=== PATIENT | male | born 1955 | race Caucasian/White ===

== ENCOUNTER 2024-02-13 08:18 | Outpatient (CLI) | payer MEDICARE | END 2024-02-13 08:19 | disposition home or self-care (01) | LOC: CSHWCC 08:18 | PROVIDERS: ATTEND Nurse Practitioner Family | DX: N30.40 Irradiation cystitis without hematuria (principal); N39.46 Mixed incontinence | CPT/HCPCS: G0277 ==

== ENCOUNTER 2024-02-14 08:16 | Outpatient (CLI) | payer MEDICARE | END 2024-02-14 08:17 | disposition home or self-care (01) | LOC: CSHWCC 08:16 | PROVIDERS: ATTEND Nurse Practitioner Family | DX: N30.40 Irradiation cystitis without hematuria (principal); N39.46 Mixed incontinence | CPT/HCPCS: G0277 ==

== ENCOUNTER 2024-02-15 08:36 | Outpatient (CLI) | payer MEDICARE | END 2024-02-15 08:37 | disposition home or self-care (01) | LOC: CSHWCC 08:36 | PROVIDERS: ATTEND Nurse Practitioner Family | DX: N30.40 Irradiation cystitis without hematuria (principal); N39.46 Mixed incontinence | CPT/HCPCS: G0277 ==

== ENCOUNTER 2024-02-19 10:43 | Outpatient (CLI) | payer MEDICARE | END 2024-02-19 10:44 | disposition home or self-care (01) | LOC: CSHWCC 10:43 | PROVIDERS: ATTEND Nurse Practitioner Family | DX: N30.40 Irradiation cystitis without hematuria (principal); N39.46 Mixed incontinence | CPT/HCPCS: G0277 ==

== ENCOUNTER 2024-02-20 08:37 | Outpatient (CLI) | payer MEDICARE | END 2024-02-20 08:38 | disposition home or self-care (01) | LOC: CSHWCC 08:37 | PROVIDERS: ATTEND Nurse Practitioner Family | DX: N30.40 Irradiation cystitis without hematuria (principal); N39.46 Mixed incontinence | CPT/HCPCS: G0277 ==

== ENCOUNTER 2024-02-21 09:46 | Outpatient (CLI) | payer MEDICARE | END 2024-02-21 09:47 | disposition home or self-care (01) | LOC: CSHWCC 09:46 | PROVIDERS: ATTEND Nurse Practitioner Family | DX: N30.40 Irradiation cystitis without hematuria (principal); N39.46 Mixed incontinence | CPT/HCPCS: G0277 ==

== ENCOUNTER 2024-02-22 10:58 | Outpatient (CLI) | payer MEDICARE | END 2024-02-22 10:59 | disposition home or self-care (01) | LOC: CSHWCC 10:58 | PROVIDERS: ATTEND Nurse Practitioner Family | DX: N30.40 Irradiation cystitis without hematuria (principal); N39.46 Mixed incontinence | CPT/HCPCS: G0277 ==

== ENCOUNTER 2024-02-26 10:04 | Outpatient (CLI) | payer MEDICARE | END 2024-02-26 10:05 | disposition home or self-care (01) | LOC: CSHWCC 10:04 | PROVIDERS: ATTEND Nurse Practitioner Family | DX: N30.40 Irradiation cystitis without hematuria (principal); N39.46 Mixed incontinence | CPT/HCPCS: G0277 ==

== ENCOUNTER 2024-02-27 08:57 | Outpatient (CLI) | payer MEDICARE | END 2024-02-27 08:58 | disposition home or self-care (01) | LOC: CSHWCC 08:57 | PROVIDERS: ATTEND Nurse Practitioner Family | DX: N30.40 Irradiation cystitis without hematuria (principal); N39.46 Mixed incontinence | CPT/HCPCS: G0277 ==

== ENCOUNTER 2024-02-28 09:02 | Outpatient (CLI) | payer MEDICARE | END 2024-02-28 09:03 | disposition home or self-care (01) | LOC: CSHWCC 09:02 | PROVIDERS: ATTEND Nurse Practitioner Family | DX: N30.40 Irradiation cystitis without hematuria (principal); N39.46 Mixed incontinence | CPT/HCPCS: G0277 ==

== ENCOUNTER 2024-02-29 08:48 | Outpatient (CLI) | payer MEDICARE | END 2024-02-29 08:49 | disposition home or self-care (01) | LOC: CSHWCC 08:48 | PROVIDERS: ATTEND Nurse Practitioner Family | DX: N30.40 Irradiation cystitis without hematuria (principal); N39.46 Mixed incontinence | CPT/HCPCS: G0277 ==

== ENCOUNTER 2024-03-04 08:57 | Outpatient (CLI) | payer MEDICARE | END 2024-03-04 08:58 | disposition home or self-care (01) | LOC: CSHWCC 08:57 | PROVIDERS: ATTEND Nurse Practitioner Family | DX: N30.40 Irradiation cystitis without hematuria (principal); N39.46 Mixed incontinence | CPT/HCPCS: G0277 ==

== ENCOUNTER 2024-03-05 09:01 | Outpatient (CLI) | payer MEDICARE | END 2024-03-05 09:02 | disposition home or self-care (01) | LOC: CSHWCC 09:01 | PROVIDERS: ATTEND Nurse Practitioner Family | DX: N30.40 Irradiation cystitis without hematuria (principal); N39.46 Mixed incontinence | CPT/HCPCS: G0277 ==

== ENCOUNTER 2024-03-07 09:32 | Outpatient (CLI) | payer MEDICARE | END 2024-03-07 09:33 | disposition home or self-care (01) | LOC: CSHWCC 09:32 | PROVIDERS: ATTEND Nurse Practitioner Family | DX: N30.40 Irradiation cystitis without hematuria (principal); N39.46 Mixed incontinence | CPT/HCPCS: G0277 ==

== ENCOUNTER 2024-03-08 09:14 | Outpatient (CLI) | payer MEDICARE | END 2024-03-08 09:15 | disposition home or self-care (01) | LOC: CSHWCC 09:14 | PROVIDERS: ATTEND Nurse Practitioner Family | DX: N30.40 Irradiation cystitis without hematuria (principal); N39.46 Mixed incontinence | CPT/HCPCS: G0277 ==

== ENCOUNTER 2024-03-11 08:56 | Outpatient (CLI) | payer MEDICARE | END 2024-03-11 08:57 | disposition home or self-care (01) | LOC: CSHWCC 08:56 | PROVIDERS: ATTEND Nurse Practitioner Family | DX: N30.40 Irradiation cystitis without hematuria (principal); N39.46 Mixed incontinence | CPT/HCPCS: G0277 ==

== ENCOUNTER 2024-03-12 08:31 | Outpatient (CLI) | payer MEDICARE | END 2024-03-12 08:32 | disposition home or self-care (01) | LOC: CSHWCC 08:31 | PROVIDERS: ATTEND Nurse Practitioner Family | DX: N30.40 Irradiation cystitis without hematuria (principal); N39.46 Mixed incontinence | CPT/HCPCS: G0277 ==

== ENCOUNTER 2024-03-13 08:29 | Outpatient (CLI) | payer MEDICARE | END 2024-03-13 08:30 | disposition home or self-care (01) | LOC: CSHWCC 08:29 | PROVIDERS: ATTEND Nurse Practitioner Family | DX: N30.40 Irradiation cystitis without hematuria (principal); N39.46 Mixed incontinence | CPT/HCPCS: G0277 ==

== ENCOUNTER 2024-03-15 08:17 | Outpatient (CLI) | payer MEDICARE | END 2024-03-15 08:18 | disposition home or self-care (01) | LOC: CSHWCC 08:17 | PROVIDERS: ATTEND Nurse Practitioner Family | DX: N30.40 Irradiation cystitis without hematuria (principal); N39.46 Mixed incontinence | CPT/HCPCS: G0277 ==

== ENCOUNTER 2024-03-18 09:09 | Outpatient (CLI) | payer MEDICARE | END 2024-03-18 09:10 | disposition home or self-care (01) | LOC: CSHWCC 09:09 | PROVIDERS: ATTEND Nurse Practitioner Family | DX: N30.40 Irradiation cystitis without hematuria (principal); N39.46 Mixed incontinence | CPT/HCPCS: G0277 ==

== ENCOUNTER 2024-03-19 09:24 | Outpatient (CLI) | payer MEDICARE | END 2024-03-19 09:25 | disposition home or self-care (01) | LOC: CSHWCC 09:24 | PROVIDERS: ATTEND Nurse Practitioner Family | DX: N30.40 Irradiation cystitis without hematuria (principal); N39.46 Mixed incontinence | CPT/HCPCS: G0277 ==

== ENCOUNTER 2024-03-20 08:43 | Outpatient (CLI) | payer MEDICARE | END 2024-03-20 08:44 | disposition home or self-care (01) | LOC: CSHWCC 08:43 | PROVIDERS: ATTEND Nurse Practitioner Family | DX: N30.40 Irradiation cystitis without hematuria (principal); N39.46 Mixed incontinence | CPT/HCPCS: G0277 ==

== ENCOUNTER 2024-03-22 09:14 | Outpatient (CLI) | payer MEDICARE | END 2024-03-22 09:15 | disposition home or self-care (01) | LOC: CSHWCC 09:14 | PROVIDERS: ATTEND Nurse Practitioner Family | DX: N30.40 Irradiation cystitis without hematuria (principal); N39.46 Mixed incontinence | CPT/HCPCS: G0277 ==

== ENCOUNTER 2024-03-25 09:33 | Outpatient (CLI) | payer MEDICARE | END 2024-03-25 09:34 | disposition home or self-care (01) | LOC: CSHWCC 09:33 | PROVIDERS: ATTEND Nurse Practitioner Family | DX: N30.40 Irradiation cystitis without hematuria (principal); N39.46 Mixed incontinence ==

== ENCOUNTER 2024-03-26 09:48 | Outpatient (CLI) | payer MEDICARE | END 2024-03-26 09:49 | disposition home or self-care (01) | LOC: CSHWCC 09:48 | PROVIDERS: ATTEND Nurse Practitioner Family | DX: N30.40 Irradiation cystitis without hematuria (principal); N39.46 Mixed incontinence | CPT/HCPCS: G0277 ×2 ==

== ENCOUNTER 2024-03-28 08:18 | Outpatient (CLI) | payer MEDICARE | END 2024-03-28 08:19 | disposition home or self-care (01) | LOC: CSHWCC 08:18 | PROVIDERS: ATTEND Family Medicine | DX: N30.40 Irradiation cystitis without hematuria (principal); N39.46 Mixed incontinence | CPT/HCPCS: G0277 ==

== ENCOUNTER 2024-04-01 11:09 | Outpatient (CLI) | payer MEDICARE | END 2024-04-01 11:10 | disposition home or self-care (01) | LOC: CSHWCC 11:09 | PROVIDERS: ATTEND Family Medicine | DX: N30.40 Irradiation cystitis without hematuria (principal); N39.46 Mixed incontinence | CPT/HCPCS: G0277 ==

== ENCOUNTER 2024-04-02 09:13 | Outpatient (CLI) | payer MEDICARE | END 2024-04-02 09:14 | disposition home or self-care (01) | LOC: CSHWCC 09:13 | PROVIDERS: ATTEND Nurse Practitioner Family | DX: N30.40 Irradiation cystitis without hematuria (principal); N39.46 Mixed incontinence | CPT/HCPCS: G0277 ==

== ENCOUNTER 2024-04-03 12:02 | Outpatient (CLI) | payer MEDICARE | END 2024-04-03 12:03 | disposition home or self-care (01) | LOC: CSHWCC 12:02 | PROVIDERS: ATTEND Nurse Practitioner Family | DX: N30.40 Irradiation cystitis without hematuria (principal); N39.46 Mixed incontinence | CPT/HCPCS: G0277 ==